=== PATIENT | male | born 1935 | race Caucasian/White ===

== ENCOUNTER 2023-12-03 19:28 | Emergency (ER) | payer MEDICARE, OTHER, SELFPAY ==
[2023-12-03 19:36] VITALS: BP 124/71
[2023-12-03 19:58] LABS: % Basophils 0.7 % (0-2); % Eosinophils 3.7 % (0-6); % Immature Granulocytes 0.8 % (0-0.5); % Lymphocytes 17.1 % (20.5-51.1); % Neutrophils 68.7 % (42.2-75.2); Absolute Basophils 0.1 10^3/uL (0-0.2); Absolute Eosinophils 0.3 10^3/uL (0-0.7); Absolute Immature Granulocytes 0.1 10^3/uL (0-0.05); Absolute Lymphocytes 1.4 10^3/uL (1.2-3.4); Absolute Monocytes 0.8 10^3/uL (0.1-0.6); Absolute Neutrophils 5.7 10^3/uL (1.4-6.5); Hemoglobin 14.4 g/dL (13.0-18.0); Mean Corp Hgb Conc. 35.1 g/dL (33.0-37.0); Mean Corpuscular Volume 91.1 fL (80.0-94.0); Nucleated Red Blood Cells % 0 % (-); Platelet Count 244 10^3/uL (130-400); Red Cell Dist. Width 13.2 % (11.5-14.5); White Blood Cell Count 8.3 10^3/uL (4.8-10.8)
[2023-12-03 20:20] LABS: ALT (SGPT) 29 U/L (0-50); AST (SGOT) 43 U/L (17-59); Albumin 4.8 g/dl (3.5-5.0); Alkaline Phosphatase 75 U/L (38-126); Blood Urea Nitrogen 18 mg/dl (9-20); Carbon Dioxide 24 mmol/L (22-30); Chloride 101 mmol/L (98-107); Glucose 152 mg/dl (70-99); Potassium 4.3 mmol/L (3.5-5.1); Sodium 142 mmol/L (135-145); Total Bilirubin 0.9 mg/dl (0.2-1.3); Total Protein 7.1 g/dl (6.3-8.2); eGFR > 60.00
[2023-12-03 21:14] VITALS: BMI 23.8
[2023-12-03 21:16] VITALS: BP 142/89
[2023-12-03 23:00] VITALS: BP 144/88
[2023-12-03 23:17] VITALS: BP 144/88
[2023-12-03 23:51] LABS: Troponin I < 0.012 ng/ml
[2023-12-04 00:14] VITALS: BP 146/78
[2023-12-04 00:25] VITALS: BP 146/78
--- NOTE | 2023-12-04 02:22 | ED.GENMED ---
History of Present Illness
General
Chief Complaint: Esophageal Problem
Source: patient and spouse
Exam Limitations: none
Time Seen by Provider: 12/03/23 22:12
Nursing documentation reviewed up to this point in time: agreed with
History of Present Illness
History of Present Illness:
88-year-old male presents with his for evaluation of nausea and vomiting and sensation of something stuck in his chest. Patient reports that he has a history of esophageal strictures requiring 'stretching procedure.' He says that he splits
time between here in [place] and that his primary GI doctors in [place]. He says that tonight he was eating sweet potatoes and turkey and when he swallowed a piece of turkey he felt to get stuck in his chest. He says that initially he thought he
could drink some water and this would pass but after he drank water he began vomiting and he has been vomiting since. Reports some mild pain in the epigastrium. Reports hiccups and yawning increased today. He denies any recent fevers or chills.
He denies any other complaints.
Past History
Past History
ED Past Medical History: Asthma
ED Past Surgical History: Appendectomy and Tonsilectomy (and adnoids)
Social History
Tobacco: Non-smoker
Alcohol: Occasional
Personal:
Living: with family
Review of Systems
Review of Systems
All Other Systems: ROS reviewed and negative except as documented in HPI and ROS
Constitutional: Denies fever or chills
Respiratory: Denies cough or trouble breathing
Cardiac: Reports chest pain (Sensation of something stuck in his chest)
ABD/GI: Reports abdominal pain, nausea and vomiting
: Denies flank pain
Musculoskeletal: Denies neck pain or back pain
Neurological: Denies headache
Phy Exam
Physical Exam
Physical Exam:
General: Awake, alert, oriented x3; holding emesis bag spitting into it
Head: Normocephalic, atraumatic
Eyes: Conjunctiva normal, sclera anicteric
Throat: Airway intact, handling secretions
Neck: Trachea midline, supple without meningismus
Lungs: Clear to auscultation bilaterally, no wheezing, rales, rhonchi
Heart: Regular rate and rhythm, no murmurs, gallops, or rubs
Abd: Soft, non distended, nontender
Neuro: No gross deficits
Skin: no rash
Extremities: Warm and well-perfused
Scores
Heart Failure Risk
Heart Failure Risk Score: Not Applicable
Heart Score for Chest Pain Patients
STEMI patient?: Not applicable
Withdrawal Assessment of Alcohol
Withdrawal Assessment Completed?: Not applicable
Course
Orders/Labs/Results
Orders:
Orders
12/03/23 19:48
ECG [Electrocardiogram (*1)] Urgent
Reason for Study: Abdominal Pain
EKG- Treatment ONCE
12/03/23 19:49
CMP [Comprehensive Metabolic Panel] Urgent
Complete Blood Count/With Diff Urgent
12/03/23 22:15
US Abdomen Complete/Upper Urgent
Comment:
Reason For Exam: upper abd pain
12/03/23 22:35
Troponin I Urgent
Abnormal Lab Results
12/03/23
19:49
RBC 4.50 L 10^6/uL
(4.70-6.10)
MCH 32.0 H pg
(27.0-31.0)
MPV 11.0 H fL
(7.4-10.4)
Abs Immat Gran (auto) 0.1 H 10^3/uL
(0-0.05)
Absolute Monos (auto) 0.8 H 10^3/uL
(0.1-0.6)
Immature Gran % 0.8 H %
(0-0.5)
Lymphocytes % 17.1 L %
(20.5-51.1)
Glucose 152 H mg/dl
(70-99)
12/03/23 19:49
12/03/23 19:49
Vital Signs
Initial and Last Documented VS:
Initial Vital Signs
Temp Pulse Resp BP Pulse Ox
36.8 C 79 20 124/71 99
12/03/23 19:36 12/03/23 19:36 12/03/23 19:36 12/03/23 19:36 12/03/23 19:36
Last Documented Vital Signs
Temp Pulse Resp BP Pulse Ox
36.8 C 88 16 146/78 98
12/03/23 19:36 12/04/23 00:25 12/04/23 00:25 12/04/23 00:25 12/04/23 00:25
MDM/Problems Addressed
Differential Diagnosis Includes:
Esophageal food bolus, esophagitis, cholecystitis/cholelithiasis, ACS/AL
MDM/Problems Addressed:
88-year-old male presents for evaluation of nausea, vomiting and sensation of something stuck in his chest after swallowing a piece of turkey this evening. Vital signs normal. Exam as above. Suspect esophageal food bolus. Fortunately shortly
after initial assessment patient got up and walked to the bathroom and he felt sensation of food passing and he no longer had any symptoms. Able to tolerate p.o. liquids and solids subsequently. Labs were sent in triage including a CBC and a CMP
which were unremarkable. He had a troponin sent which was undetectable. He had an upper abdominal ultrasound as well which showed no acute pathology. Stable for discharge at this point. Will start on a PPI after this episode. Likely related to
his known history of esophageal strictures. He does not have a GI doctor here and will be here for another 2 months�given his history of strictures and today with significant food impaction I think expedited follow-up is warranted. I sent a
message to GI office to expedite outpatient follow-up. Patient is happy with this plan. Spoke about return precautions all questions answered.
*Radiology
Radiology exam reviewed: radiology read reviewed
*Pulse Oximetry
Patient hypoxic: no
*EKG
Interpreted by ED Provider?: Yes
Heart Rate: 85
Rate: normal
Rhythm: sinus
[place]: normal axis
Interval: normal interval
QRS Pattern: right bundle branch block
Ischemia: no ischemia
*Critical Care Note
Total Time (30-74mins, 75-104mins- exclusive of procedures): Not Applicable
Data Reviewed
Source: patient, records and spouse
ED Attending Note
-
Portions of this chart may have been created with voice recognition software.� Occasional wrong word or��sound alike� substitutions may have occurred due to the inherent limitations of voice recognition software.
Discharge Plan
Departure
Patient Disposition: Home (Routine Discharge)
Date of Disposition: 12/03/23
Time of Disposition: 23:57
Patient with high blood pressure during this ER visit?: No
Discharge Problem:
Food impaction of esophagus
Instructions: Food Obstruction
Prescriptions:
New
pantoprazole 40 mg tablet,delayed release (DR/EC)
40 mg PO DAILY 14 Days Qty: 14 0RF
No Action
rosuvastatin 5 mg Tablet
5 mg PO DIRECTED
Rx Instructions:
1 pill 3 times a week
albuterol
Referrals:
Roderick Minor MD [Active] - Call in 1-3 days for appt (Gastroenterology)
Chau Santiago MD [Family Provider] -
Activity Restrictions/Additional Instructions:
Thank you for visiting the Emergency Department at [facility].
1. Please schedule a follow up appointment as directed. Call first thing tomorrow morning to make an appointment.
2. If indicated, please take your medications as instructed and indicated on discharge paperwork.
3. If any of your symptoms do not improve, or persist, or become more severe within 6-12 hours, please return to the emergency department for further care.
4. Please return to the emergency department if you develop a headache, neck pain/stiffness, fever greater than 100.4F, chest pain, shortness of breath, persistent nausea, vomiting, slurred speech, difficulty walking, numbness/tingling, weakness,
signs of infection or any other symptoms that are worrisome to you.
Please call [phone] if you have any questions.
Interventions
Interventions:
*Risk Screen - Suicide Last Done: 12/03/23 19:36
*General Assessment Last Done: 12/03/23 19:36
*Neglect/Abuse Screening Last Done: 12/03/23 19:36
ED- Fall Risk Assessment Last Done: 12/03/23 22:44
*ED COVID-19 Vaccine History Last Done: 12/03/23 21:15
*Nursing Disposition Last Done: 12/04/23 00:25
ED-EENT Assessment Last Done: 12/03/23 22:44
JJ-Wbemjc-Jwxnaioldn Assessment Last Done: 12/03/23 22:44
Discharge Date and Time
Discharge Date/Time: 12/04/23 00:25
Print Language: [id number]
== END 2023-12-04 00:25 | disposition home or self-care (01) ==
LOC: EMR 19:28
PROVIDERS: Emergency Medicine; EMERGENCY PHYSICIAN Emergency Medicine; FAMILY PHYSICIAN Internal Medicine
DX: T18.128A Food in esophagus causing other injury, initial encounter (principal); W44.F3XA Food entering into or through a natural orifice, initial encounter
CPT/HCPCS: 99285; 76700; 80053; 84484; 85025; 93005

== ENCOUNTER → 2023-12-12 09:45 | Outpatient (REF) | payer MEDICARE, OTHER, SELFPAY | LOC: RAD 09:45 | PROVIDERS: ATTENDING PHYSICIAN Internal Medicine Gastroenterology; FAMILY PHYSICIAN Internal Medicine | DX: R13.10 Dysphagia, unspecified (principal) | CPT/HCPCS: 74221 ==